=== PATIENT | male | born 1950 | race Caucasian/White ===

== ENCOUNTER → 2023-10-10 12:47 | Outpatient (REF) | payer MEDICARE, OTHER, SELFPAY | LOC: DHCBS MAIN 12:47 | PROVIDERS: ATTENDING PHYSICIAN Nuclear Medicine Nuclear Cardiology; FAMILY PHYSICIAN Family Medicine | DX: I34.0 Nonrheumatic mitral (valve) insufficiency (principal); I48.0 Paroxysmal atrial fibrillation; I10 Essential (primary) hypertension | CPT/HCPCS: 93306 ==

== ENCOUNTER → 2024-06-17 09:17 | Outpatient (REF) | payer MEDICARE, OTHER, SELFPAY ==
[2024-06-17 10:47] LABS: ALT (SGPT) 33 U/L (0-50); AST (SGOT) 36 U/L (17-59); Albumin 4.2 g/dl (3.5-5.0); Alkaline Phosphatase 57 U/L (38-126); Blood Urea Nitrogen 22 mg/dl (9-20); Calcium 9.8 mg/dl (8.4-10.2); Carbon Dioxide 29 mmol/L (22-30); Chloride 102 mmol/L (98-107); Glucose 85 mg/dl (70-99); HDL Cholesterol 42 mg/dl; LDL Cholesterol, Calculated 74 mg/dl; Sodium 141 mmol/L (135-145); Total Bilirubin 1.3 mg/dl (0.2-1.3); Total Cholesterol 133 mg/dl (50-199); Total Protein 6.9 g/dl (6.3-8.2); Triglyceride 87 mg/dl (10-149); Very Low Density Lipoprotein 17 mg/dl (0-30); eGFR > 60.00
== END ==
LOC: REG 09:17
PROVIDERS: ATTENDING PHYSICIAN Nuclear Medicine Nuclear Cardiology; FAMILY PHYSICIAN Family Medicine
DX: I10 Essential (primary) hypertension (principal); I48.0 Paroxysmal atrial fibrillation
CPT/HCPCS: 36415; 80053; 80061

== ENCOUNTER 2025-04-15 21:00 | Emergency (ER) | payer MEDICARE, OTHER, SELFPAY ==
[2025-04-15 21:05] VITALS: BP 107/69
--- NOTE | 2025-04-15 21:07 | ED.GENMED ---
History of Present Illness
General
Chief Complaint: Heart Rate Problem
Time Seen by Provider: 04/15/25 21:07
History of Present Illness
History of Present Illness:
FOCUSED PAST MEDICAL HISTORY
- A-fib on Eliquis
REVIEW OF OLD RECORDS
- I reviewed rhythm strips from EMS. Rhythm strip shows SVT with a rate of 191. EMS states that they had him do a Valsalva maneuver and repeat monitoring then showed sinus rhythm with rate of 79
Note:
CHIEF COMPLAINT(S)
Diarrhea and blood in stool.
HISTORY OF PRESENT ILLNESS
The patient is a 74-year-old male presenting with diarrhea and hemoccult-positive stools. He visited [facility] in [place] due to episodes of diarrhea characterized by watery stool. The diarrhea began approximately four days ago. He also
reported having blood in stools starting four days ago but denies any associated pain. Upon evaluation of laboratory results from [facility], his white blood cell count was normal at 6.4, hemoglobin was 14.1, and creatinine indicated normal
kidney function at 1.2. A urine analysis revealed specific gravity greater than 1.030 and presence of ketones, suggesting dehydration. The patient did not report any urinary symptoms.
While at the facility, he experienced supraventricular tachycardia, which was reverted to normal sinus rhythm via a Valsalva maneuver instructed by EMS. There have also been occasional extra heartbeats noted. He has a known history of atrial
fibrillation. The patient denies taking any blood thinners, such as apixaban (Eliquis). He currently feels well but might require further intravenous fluids to address dehydration.
PHYSICAL EXAM
General: Alert, no acute distress.
Skin: Warm, dry.
Head: Normocephalic, atraumatic.
Neck: Supple, trachea midline.
Eyes, Ears, Nose, Mouth, and Throat: Oral mucosa moist.
Cardiovascular: Normal peripheral perfusion, No edema.
Respiratory: Respirations are non-labored.
Gastrointestinal: Abdomen nondistended, no tenderness on palpation.
Back: Normal range of motion, normal alignment.
Musculoskeletal: Normal range of motion, normal strength.
Neurological: Alert and oriented to person, place, time, and situation, No focal neurological deficit observed.
Psychiatric: Cooperative, appropriate mood and affect.
PROBLEM LIST
Acute:
- Diarrhea with blood in stool
- Supraventricular Tachycardia
Chronic:
- Atrial Fibrillation
PLAN
- Administer 500 mL bolus of intravenous fluids to address dehydration.
- Monitor cardiac rhythm for any further episodes of arrhythmia.
- Keep the patient under observation for any changes in condition.
- Re-evaluate need for further diagnostics or treatments based on clinical progression.
DIFFERENTIAL DIAGNOSIS
The Differential Diagnosis includes, in no particular order and is not limited to:
- Gastroenteritis
- Colitis
- Diverticulosis
- Hemorrhoids
- Inflammatory bowel disease
- Ischemic colitis
- Peptic ulcer disease
- Gastrointestinal malignancy
- Atrial fibrillation with rapid ventricular response
- Supraventricular tachycardia due to dehydration
Disposition:
SUMMARY OF ENCOUNTER
The 74-year-old male patient was seen in the emergency department for episodes of diarrhea with blood present in the stool, diagnosed at an urgent care facility. Laboratory results from the urgent care indicated possible dehydration. The patient
experienced supraventricular tachycardia (SVT) during the visit, which was successfully reverted to normal sinus rhythm. In the emergency department, the patient was given additional intravenous fluids to address dehydration. Despite his cardiac
event, he feels reasonably well post-treatment.
DISPOSITION
The patient will be discharged home and advised to follow up with a picking supervisor for further evaluation due to his episode of supraventricular tachycardia.
ASSESSMENT
The patient experienced supraventricular tachycardia likely due to dehydration secondary to diarrhea.
PLAN
Discharge the patient home with instructions to follow up with a picking supervisor.
INDEPENDENT REVIEW OF LABS AND INTERPRETATION OF TESTS
My independent review of blood work from urgent care: CBC shows that the white blood cell count is normal at 6.4 and hemoglobin was 14.1. My independent review of BMP indicates a creatinine of 1.2, consistent with normal kidney function. Urinalysis
shows specific gravity greater than 1.030 and presence of ketones, suggesting dehydration.
FOLLOW-UP INSTRUCTIONS
The patient is advised to follow up with a picking supervisor for further evaluation regarding the supraventricular tachycardia episode.
MEDICATION RECONCILIATION
The patient received intravenous fluids for dehydration treatment.
MEDICAL DECISION MAKING
- Number and Complexity of Problems Addressed: Chronic conditions affecting care - Atrial Fibrillation; Differential Diagnosis list includes gastroenteritis, colitis, diverticulosis, hemorrhoids, inflammatory bowel disease, ischemic colitis, peptic
ulcer disease, gastrointestinal malignancy, atrial fibrillation with rapid ventricular response, and supraventricular tachycardia due to dehydration.
- Data:
Category 1: Tests and documents
My independent interpretation of lab tests from prior urgent care visit, including CBC and BMP.
Category 3: The patient will be referred for a cardiology review for further management due to the episode of supraventricular tachycardia.
- Risk:
Consideration of Admission/Observation: Escalation of care including admission/observation was considered given the complexity and risk of the patients presenting complaint, exam findings, and/or their underlying comorbidities. However, ultimately I
felt the patient is safe for outpatient management with close follow-up. Reasoning: Work-up reassuring, does not reveal any acute life/organ-threatening processes, patients symptoms well controlled upon reevaluation, reexamination is reassuring,
vitals are stable, patient agreeable with discharge, reliable for follow-up.
DIAGNOSIS
Diarrhea with reported blood in stool but not found on examination
Supraventricular Tachycardia - I47.1
Diarrhea
I also spoke to the over the phone prior to discharge
LABS
- Labs not obtained in the Emergency Department as the patient just had labs prior to arrival here
Will refer back to Dr. Moody as Dr. Moody has seen the patient in the past.
Past History
Past History
ED Past Medical History: HTN, Hypercholesterolemia and Other
Social History
Tobacco: Former smoker
Alcohol: None
Personal:
Living: with family
Family History
Family History: CAD and Other
Phy Exam
Physical Exam
Physical Exam:
See HPI
Course
Orders/Labs/Results
Orders:
Orders
04/15/25 21:04
Electrocardiogram (*1) Urgent
Reason for Study: Chest Pain
EKG- Treatment ONCE
04/15/25 21:15
0.9% Sodium Chloride 500 ml [Nss] 500 ml IV BOLUS
04/15/25 21:04
04/15/25 21:04
Vital Signs
Initial and Last Documented VS:
Initial Vital Signs
Temp Pulse Resp BP Pulse Ox
37.2 C 80 18 107/69 96
04/15/25 21:05 04/15/25 21:05 04/15/25 21:05 04/15/25 21:05 04/15/25 21:05
Last Documented Vital Signs
Temp Pulse Resp BP Pulse Ox
37.2 C 79 18 104/68 96
04/15/25 21:05 04/15/25 22:00 04/15/25 22:00 04/15/25 22:00 04/15/25 22:00
*Pulse Oximetry
Patient hypoxic: no
*Critical Care Note
Total Time (30-74mins, 75-104mins- exclusive of procedures): Not Applicable
ED Attending Note
-
Portions of this chart may have been created with voice recognition software.� Occasional wrong word or��sound alike� substitutions may have occurred due to the inherent limitations of voice recognition software.
Discharge Plan
Departure
Prescriptions:
No Action
multivitamin with folic acid [Tab-A-Jenn] 1 TABLET tablet
1 tab PO DAILY
atorvastatin 40 MG tablet
40 mg PO QPM
cetirizine 10 MG tablet
10 mg PO DAILY
ascorbic acid (vitamin C) [Vitamin C] 500 MG tablet
1,000 mg PO DAILY
garlic [Odorless Garlic] 500 MG tablet
500 mg PO BID@0800,1700
niacin 500 MG tablet
500 mg PO QPM
kmifutj-stqpzuuncqase-ykrlpeol 1 TABLET tablet
2 tablets PO DAILYPRN PRN (Reason: headache)
apixaban [Eliquis] 5 MG tablet
5 mg PO BID Qty: 60 6RF
metoprolol tartrate 25 MG tablet
25 mg PO BID Qty: 60 6RF
Referrals:
Jackson Urena MD [Family Provider, Family Practice]
Interventions
Interventions:
*Risk Screen - Suicide Last Done: 04/15/25 21:19
*General Assessment Last Done: 04/15/25 21:19
*Neglect/Abuse Screening Last Done: 04/15/25 21:19
*ED- Fall Risk Assessment Last Done: 04/15/25 21:19
*ED COVID-19 Vaccine History Last Done: 04/15/25 21:19
ED- Cardiac Assessment Last Done: 04/15/25 21:22
ED- Pulmonary Assessment Last Done: 04/15/25 21:22
Discharge Date and Time
Print Language: UKRAINIAN
[2025-04-15] MEDS: NSS 500 IV (21:17)
[2025-04-15 21:19] VITALS: BMI 27.5
[2025-04-15 21:30] VITALS: BP 106/81
[2025-04-15 22:00] VITALS: BP 104/68
[2025-04-15 22:31] VITALS: BP 105/68
[2025-04-15 23:00] VITALS: BP 115/82
== END 2025-04-15 23:24 | disposition home or self-care (01) ==
LOC: EMR 21:00
PROVIDERS: EMERGENCY PHYSICIAN Emergency Medicine; FAMILY PHYSICIAN Family Medicine
DX: I47.10 Supraventricular tachycardia, unspecified (principal); E86.0 Dehydration; I48.91 Unspecified atrial fibrillation; I10 Essential (primary) hypertension; E78.00 Pure hypercholesterolemia, unspecified; Z87.891 Personal history of nicotine dependence; Z82.49 Family history of ischemic heart disease and other diseases of the circulatory system
CPT/HCPCS: 99284; 96360; 93005